=== PATIENT | male | born 1965 | race Caucasian/White ===

== ENCOUNTER 2017-03-16 14:51 | Emergency (ER) | payer BC, OTHER ==
[~2017-03-16] VITALS: Ht 185.4 cm; Wt 84.1 kg
[2017-03-16] MEDS ORDERED: TIOT18INH INH (15:04)
[2017-03-16] MEDS ORDERED: SYMB16INH INH (15:04)
[2017-03-16] MEDS ORDERED: AVEL400T PO (15:55)
[2017-03-16] MEDS ORDERED: TESS100C PO (15:55)
[2017-03-16 16:00] VITALS: BP 119/75
== END 2017-03-16 16:07 | disposition home or self-care (01) ==
LOC: M ED 15:52
DX: J44.0 Chronic obstructive pulmonary disease with (acute) lower respiratory infection (principal); Z87.891 Personal history of nicotine dependence

== ENCOUNTER 2018-05-11 03:39 | Emergency (ER) | payer OTHER ==
[2018-05-11] MEDS: HYDROMORPHONE HCL 0.5 MG/ 0.5 ML SYRINGE (J1170 PER 1) IV ×2 (04:45→06:41)
[2018-05-11] MEDS ORDERED: ISOVUE-370 76% 100ML VIAL (Q9967) As Ordered (08:05)
[2018-05-11 08:17] LABS: HEMATOCRIT 47.8 % (42.0-52.0); HEMOGLOBIN 16.9 g/dl (13.5-17.5); MEAN CORPUSCULAR HEMOGLOBIN 32.1 pg (27.0-33.0); MEAN CORPUSCULAR HGB CONC 35.4 g/dl (32.0-36.5); MEAN CORPUSCULAR VOLUME 90.9 fl (80.0-96.0); PLATELET COUNT, AUTOMATED 200 10^3/uL (150-450); RED BLOOD COUNT 5.26 10^6/uL (4.30-6.10)
[2018-05-11 08:29] LABS: ALBUMIN 4.3 GM/DL (3.2-5.2); ALBUMIN/GLOBULIN RATIO 1.16 (1.00-1.93); ALKALINE PHOSPHATASE 106 U/L (45-117); ALT/SGPT 45 U/L (12-78); ANION GAP 9 MEQ/L (8-16); AST/SGOT 36 U/L (7-37); BILIRUBIN,DIRECT 0.2 MG/DL (0.0-0.2); BILIRUBIN,TOTAL 0.6 MG/DL (0.2-1.0); BLOOD UREA NITROGEN 15 MG/DL (7-18); CALCIUM LEVEL 9.1 MG/DL (8.5-10.1); CARBON DIOXIDE LEVEL 27 MEQ/L (21-32); CHLORIDE LEVEL 103 MEQ/L (98-107); CREATININE FOR GFR 1.14 MG/DL (0.70-1.30); GLOMERULAR FILTRATION RATE > 60.0 (>56); GLUCOSE, FASTING 120 MG/DL (70-100); POTASSIUM SERUM 3.5 MEQ/L (3.5-5.1); SODIUM LEVEL 139 MEQ/L (136-145)
[2018-05-11] MEDS: NS 1,000 ML IV (09:13)
[2018-05-11] MEDS: PERCOCET 5MG/325MG TAB PO (10:04)
== END 2018-05-11 12:43 | disposition home or self-care (01) ==
LOC: M ED 03:39
DX: S42.022A Displaced fracture of shaft of left clavicle, initial encounter for closed fracture (principal); S42.192A Fracture of other part of scapula, left shoulder, initial encounter for closed fracture; S42.142A Displaced fracture of glenoid cavity of scapula, left shoulder, initial encounter for closed fracture; S42.122A Displaced fracture of acromial process, left shoulder, initial encounter for closed fracture; S22.42XA Multiple fractures of ribs, left side, initial encounter for closed fracture; V27.0XXA Motorcycle driver injured in collision with fixed or stationary object in nontraffic accident, initial encounter; Y92.410 Unspecified street and highway as the place of occurrence of the external cause; J44.9 Chronic obstructive pulmonary disease, unspecified; Z88.8 Allergy status to other drugs, medicaments and biological substances; Z79.51 Long term (current) use of inhaled steroids
CPT/HCPCS: Q9967

== ENCOUNTER 2019-03-05 19:28 | Emergency (ER) | payer OTHER ==
[~2019-03-05] VITALS: Ht 185.4 cm; Wt 86.4 kg
[~2019-03-05 19:28] MED LIST: AVEL400T PO; PERC5TAB12 PO; SYMB16INH INH; TESS100C PO; TIOT18INH INH
[2019-03-05 20:03] LABS: HEMATOCRIT 47.6 % (42.0-52.0); HEMOGLOBIN 16.7 g/dl (13.5-17.5); MEAN CORPUSCULAR HGB CONC 35.1 g/dl (32.0-36.5); MEAN CORPUSCULAR VOLUME 91.2 fl (80.0-96.0); PLATELET COUNT, AUTOMATED 209 10^3/uL (150-450); RED BLOOD COUNT 5.22 10^6/uL (4.30-6.10); WHITE BLOOD COUNT 9.9 10^3/uL (4.0-10.0)
[2019-03-05 20:31] LABS: ALBUMIN 3.5 GM/DL (3.2-5.2); ALT/SGPT 27 U/L (12-78); BILIRUBIN,TOTAL 0.7 MG/DL (0.2-1.0); BLOOD UREA NITROGEN 18 MG/DL (7-18); CALCIUM LEVEL 8.7 MG/DL (8.5-10.1); CARBON DIOXIDE LEVEL 26 MEQ/L (21-32); CHLORIDE LEVEL 105 MEQ/L (98-107); CREATININE FOR GFR 1.33 MG/DL (0.70-1.30); GLOMERULAR FILTRATION RATE > 60.0 (>56); GLUCOSE, FASTING 113 MG/DL (70-100); POTASSIUM SERUM 4.3 MEQ/L (3.5-5.1); SODIUM LEVEL 138 MEQ/L (136-145); TOTAL PROTEIN 7.3 GM/DL (6.4-8.2)
--- NOTE | 2019-03-05 21:44 | REP ---
Clinical: Shortness of breath and diminished breath sounds. Technique: PA and lateral. Comparison: 05/11/2018. Findings: Mediastinum and cardiac silhouette are within normal limits and stable. The lung gallardo demonstrate diffuse coarsened and increased interstitial markings suggesting chronic reactive airway disease versus bronchitis. No focal consolidation. No effusion. No pneumothorax. Skeletal structures intact. Old healed left clavicle fracture noted. Impression: Diffuse increased coarsened interstitial markings. Findings are nonspecific and include chronic interstitial disease, chronic reactive airway disease and bronchitis. No focal consolidation or effusion. Electronically Signed by Carlos David MD 03/05/2019 09:35 P
[2019-03-05] MEDS ORDERED: predniSONE 20 MG TAB PO ONE (22:00)
[2019-03-05] MEDS ORDERED: AZITHROMYCIN 250 MG TAB PO ONE (22:00)
[2019-03-05] MEDS ORDERED: ZITH250T PO (22:02)
[2019-03-05] MEDS ORDERED: PRED10TA2 PO (22:02)
[2019-03-05 22:07] VITALS: BP 116/76
== END 2019-03-05 22:11 | disposition home or self-care (01) ==
LOC: M ED 19:28
DX: J42 Unspecified chronic bronchitis (principal); J44.9 Chronic obstructive pulmonary disease, unspecified; E88.01 Alpha-1-antitrypsin deficiency; Z79.899 Other long term (current) drug therapy; Z88.8 Allergy status to other drugs, medicaments and biological substances; Z87.891 Personal history of nicotine dependence

== ENCOUNTER → 2022-02-23 | Outpatient (CLI) | payer OTHER ==
[~2022-02-23] MED LIST changes: +PRED10TA2 PO; +ZITH250T PO
== END ==
LOC: M OUTALCOH 08:13
PROVIDERS: ATTEND Psychiatry & Neurology Psychiatry
DX: Z03.89 Encounter for observation for other suspected diseases and conditions ruled out (principal)